=== PATIENT | male | born 1970 | race African-American/Black ===

== ENCOUNTER 2022-06-26 15:32 | Inpatient (IN) | payer MEDICAID ==
[~2022-06-26] VITALS: Ht 177.8 cm; Wt 65.3 kg
[2022-06-26 16:51] LABS: HEMATOCRIT 37.2 % (36.7-47.1); MEAN CORPUSCULAR HEMOGLOBIN 27.7 uug (23.8-33.4); MEAN CORPUSCULAR VOLUME 89.2 fL (73.0-96.2); PLATELET COUNT (AUTO) 300 K/uL (152-348)
[2022-06-26 17:00] LABS: CARBON DIOXIDE 22 mmol/L (21-32); CHLORIDE 106 mmol/L (98-107); GLUCOSE 77 mg/dL (74-106); POTASSIUM 4.5 mmol/L (3.5-5.1); UREA NITROGEN, BLOOD 41 mg/dL (7-18)
--- NOTE | 2022-06-26 19:25 | NUR ---
as per Dr Anderson, patient can have food
--- NOTE | 2022-06-26 19:30 | NUR ---
Change of shift report from Shari LIPSCOMB
--- NOTE | 2022-06-26 19:31 | NUR ---
Pavithra garcia in [facility] - 06/26/22 at 1932 by ISAI Change of shift report from Shari LIPSCOMB
--- NOTE | 2022-06-26 19:58 | NUR ---
Patient taken for lung scan
[2022-06-26] MEDS ORDERED: ONDANSETRON 4 MG/2 ML VIAL IV PRN (20:15)
[2022-06-26] MEDS ORDERED: REMEDY ESSENTIAL ZINC PASTE 113 GM TP PRN (20:15)
[2022-06-26] MEDS ORDERED: MAGNESIUM HYDROXIDE 30 ML LIQUID UDC PO PRN (20:15)
[2022-06-26] MEDS ORDERED: ACETAMINOPHEN 325 MG TABLET PO PRN (20:15)
--- NOTE | 2022-06-26 22:20 | NUR ---
Called 3rd floor to give report. Was told to wait for 15 mins
--- NOTE | 2022-06-26 22:36 | NUR ---
report given to Maddison LIPSCOMB
--- NOTE | 2022-06-26 23:15 | NUR ---
Pt. admitted to TELE room 305 , under care of Dr. Wheeler Belongs List completed Maddison RN aware of patient's arrival
--- NOTE | 2022-06-26 23:30 | NUR ---
Received pt via ish assisted by RUEL Bynum. Admitted 52 yr old male with diagnosis of CHF, Renal Failure, NSTEMI. AOx4. Able to ambulate. SOB noted with RR of 24 on rest. On O2 at 2LPM/NC. Pitting edema on right leg +3 and +2 on the left leg. IV site on RAC 20 g intact and patent. Instructed to use urinal for strict I&O. Verbalized understanding. All belonging documented. All needs attended. Safety precautions observed. Will continue to monitor.
[2022-06-26] MEDS: FUROSEMIDE 40 MG/4 ML VIAL IV SCH (23:49)
[2022-06-27] VITALS: BP 147/111
--- NOTE | 2022-06-27 03:00 | NUR ---
Critical Lab Troponin 165. made aware.
--- NOTE | 2022-06-27 03:42 | NUR ---
BP was 147/111 at 0000 then 154/107 at 0330. Informed Christine Hurt NP. No new order.
[2022-06-27 04:00] VITALS: BP 137/104
[2022-06-27] MEDS: PANTOPRAZOLE SODIUM 40 MG TABLET.DR PO SCH (06:01)
[2022-06-27 06:50] LABS: HEMATOCRIT 37.4 % (36.7-47.1); MEAN CORPUSCULAR HEMOGLOBIN 27.4 uug (23.8-33.4); PLATELET COUNT (AUTO) 285 K/uL (152-348)
[2022-06-27 07:16] LABS: CREATININE 2.5 mg/dL (0.6-1.3); MAGNESIUM 1.8 mg/dL (1.8-2.4); PHOSPHOROUS 4.4 mg/dL (2.5-4.9); POTASSIUM 4.2 mmol/L (3.5-5.1)
[2022-06-27] MEDS: FUROSEMIDE 40 MG/4 ML VIAL IV SCH ×3 (08:44→21:22)
[2022-06-27 09:43] LABS: *BILIRUBIN,URIN NEGATIVE (NEGATIVE); *BLOOD, URINE NEGATIVE (NEGATIVE); *CLARITY,URINE CLEAR (CLEAR); *COLOR,URINE YELLOW (YELLOW); *KETONES,URINE NEGATIVE (NEGATIVE); *UROBILINOGEN,URINE 0.2 E.U./dl (NORMAL); LEUKOCYTE ESTERASE ,URINE NEGATIVE (NEGATIVE); NITRITE, URINE NEGATIVE (NEGATIVE); PH,URINE 5.5 (5.0-8.0); UGLUCOSE NEGATIVE (NEGATIVE)
[2022-06-27 09:53] LABS: *CREATININE,URINE 71.1 mg/dL (30-125); *URINE TOTAL PROTEIN RANDOM 35.6 mg/dL (<150/24HR)
[2022-06-27 10:05] LABS: *AMPHETAMINE, URINE NEGATIVE (NEGATIVE); *CANNABINOID, URINE NEGATIVE (NEGATIVE); *COCCAINE, URINE POSITIVE (NEGATIVE); *PHENCYCLIDINE SCREEN,URINE NEGATIVE (NEGATIVE)
[2022-06-27] MEDS: ASPIRIN 81 MG TAB.CHEW PO SCH (10:21)
--- NOTE | 2022-06-27 11:22 | NUR ---
Social work consult was requested for a patient on [facility] for homeless resources and substance abuse resources. Patient is 52-year-old male admitted to the hospital for heart failure. Patient is alert and oriented X2. Patient could not state the date or place. Patient presents with depressed mood and congruent affect. Patient states he does not have a primary personnel technician. Patient states that he has been homeless for a couple of years. SW offered the patient resources for shelters and the patient refused. Resources were placed in the chart. Homeless waiver was signed, placed in the chart and a copy was given to the patient. Patient states he is currently unemployed. Patient states that he has a history of substance abuse. The toxicology screening reports positive for cocaine. [facility] provided the patient with resources to [place] [address] ([phone]), [facility] [id number] [place] [address] ([phone]), and [address] [address] ([phone]). Patient appeared appreciative of referrals and stated that he was interested in [address] [address] ([phone]). Patient appeared motivated for treatment. SAMM placed the resources in the patients chart. Patient denies suicidal or homicidal ideation. Patient states he wants to make his own arrangements for discharge. Patient states that he wants TAP card at discharge.
[2022-06-27 12:00] VITALS: BP 159/105
[2022-06-27 15:56] VITALS: BP 142/98
--- NOTE | 2022-06-27 18:27 | NUR ---
Patient tolerated care well throughout shift with no complaints of pain or distress. Patient hungry during shift. Snacks provided. Patient is alert and oriented. IV site patent and intact. Strict intake and output for shift. Bed left in lowest position with call light within reach. Comfort measures provided. Needs attended. Will endorse information to PM nurse.
--- NOTE | 2022-06-27 19:30 | NUR ---
Received pt awake, alert and orientedx4 .PT in no acute distress. Iv intact. Pt can make his needs known. Pt on sinus rhythm. Safety and comfort provided. Will continue to monitor.
[2022-06-27 19:48] VITALS: BP 156/100
[2022-06-28 00:17] VITALS: BP 136/95
[2022-06-28] MEDS: PANTOPRAZOLE SODIUM 40 MG TABLET.DR PO SCH (07:00)
[2022-06-28 08:14] LABS: MEAN CORPUSCULAR HEMOGLOBIN 27.6 uug (23.8-33.4); MEAN CORPUSCULAR VOLUME 87.7 fL (73.0-96.2); PLATELET COUNT (AUTO) 279 K/uL (152-348)
[2022-06-28 08:26] LABS: BILIRUBIN,TOTAL 0.7 mg/dL (0.2-1.0); CREATININE 2.3 mg/dL (0.6-1.3); MAGNESIUM 1.6 mg/dL (1.8-2.4); PHOSPHOROUS 3.3 mg/dL (2.5-4.9); TOTAL PROTEIN, SERUM 6.4 g/dL (6.4-8.2)
[2022-06-28] MEDS: ASPIRIN 81 MG TAB.CHEW PO SCH (08:32)
[2022-06-28] MEDS: FUROSEMIDE 40 MG/4 ML VIAL IV SCH ×3 (08:33→22:16)
[2022-06-28] MEDS ORDERED: MAGNESIUM OXIDE 400 MG TABLET PO ONE (09:15)
[2022-06-28 12:00] VITALS: BP 132/93
[2022-06-28 20:16] VITALS: BP 141/92
[2022-06-29 00:15] VITALS: BP 136/88
[2022-06-29 04:21] VITALS: BP 123/82
--- NOTE | 2022-06-29 05:12 | NUR ---
Received patient in bed awake, alert and oriented x 3. In no acute distress, denies chest pain, no SOB. Sinus tachy on tele with HR 98bpm. Slept intermittently throughout the night. Needs assessed and attended to. Call light within easy reach.
[2022-06-29] MEDS: PANTOPRAZOLE SODIUM 40 MG TABLET.DR PO SCH (06:15)
[2022-06-29] MEDS: FUROSEMIDE 40 MG/4 ML VIAL IV SCH ×2 (06:15→16:45)
[2022-06-29 06:17] LABS: MEAN CORPUSCULAR HEMOGLOBIN 27.5 uug (23.8-33.4); MEAN CORPUSCULAR VOLUME 87.3 fL (73.0-96.2); PLATELET COUNT (AUTO) 308 K/uL (152-348)
[2022-06-29 06:25] LABS: MAGNESIUM 1.6 mg/dL (1.8-2.4); PHOSPHOROUS 3.3 mg/dL (2.5-4.9); POTASSIUM 3.7 mmol/L (3.5-5.1)
--- NOTE | 2022-06-29 07:30 | NUR ---
Pt.sleeping,no s/s of distress or pain noted.
[2022-06-29] MEDS ORDERED: POTASSIUM CHLORIDE 20 MEQ POWDER PACKET PO ONE (08:30)
[2022-06-29] MEDS: ASPIRIN 81 MG TAB.CHEW PO SCH (08:42)
[2022-06-29] MEDS ORDERED: POTASSIUM CHLORIDE 20 MEQ TAB.PRT.SR PO ONE (08:45)
[2022-06-29] MEDS: MAGNESIUM SULFATE/D5W 100 ML IV SCH ×2 (08:49→09:30)
[2022-06-29] MEDS: LOSARTAN POTASSIUM 25 MG TABLET PO SCH (08:49)
[2022-06-29 15:08] LABS: A/G RATIO 0.8 (0.7-1.7); ALBUMIN 2.5 g/dL (2.9-4.4); ALPHA-1-GLOBULIN 0.3 g/dL (0.0-0.4); ALPHA-2-GLOBULIN 0.6 g/dL (0.4-1.0); BETA GLOBULIN 1.2 g/dL (0.7-1.3); GAMMA GLOBULIN 1.2 g/dL (0.4-1.8); GLOBULIN, TOTAL 3.2 g/dL (2.2-3.9); M-SPIKE Not Observed g/dL (Not Observed)
[2022-06-29 16:00] VITALS: BP 121/77
--- NOTE | 2022-06-29 19:39 | NUR ---
Received patient lying in bed. AAOX4. In no acute distress. Denies any pain or SOB. NSR on tele with HR of 99/min. IV site on right AC intact and patent.Needs assessed and attended to. Safety measure initiated and call light within reached.
[2022-06-29 20:30] VITALS: BP 117/69
[2022-06-30 00:34] VITALS: BP 118/69
[2022-06-30 04:24] VITALS: BP 122/78
--- NOTE | 2022-06-30 05:24 | NUR ---
Patient slept well during the night. No complain of pain or SOB. NSR on tele with Hr of 92/min. Needs attended to and met. Safety measure maintained and call light within reached.
[2022-06-30] MEDS: PANTOPRAZOLE SODIUM 40 MG TABLET.DR PO SCH (06:09)
[2022-06-30 07:23] LABS: HEMATOCRIT 41.6 % (36.7-47.1); MEAN CORPUSCULAR HEMOGLOBIN 27.6 uug (23.8-33.4); MEAN CORPUSCULAR VOLUME 86.7 fL (73.0-96.2); PLATELET COUNT (AUTO) 331 K/uL (152-348)
--- NOTE | 2022-06-30 07:30 | NUR ---
Awake, alert, oriented x 4, requesting for food. Calm and cooperative. Denies chest pain
[2022-06-30 08:02] LABS: POTASSIUM 4.2 mmol/L (3.5-5.1)
[2022-06-30 08:03] LABS: CREATININE 1.9 mg/dL (0.6-1.3)
[2022-06-30] MEDS: ASPIRIN 81 MG TAB.CHEW PO SCH (08:58)
[2022-06-30] MEDS: FUROSEMIDE 40 MG/4 ML VIAL IV SCH (08:58)
[2022-06-30] MEDS: LOSARTAN POTASSIUM 25 MG TABLET PO SCH (09:04)
--- NOTE | 2022-06-30 10:00 | NUR ---
Asking for additional food, provided.
[2022-06-30] MEDS: SPIRONOLACTONE 25 MG TABLET PO SCH (11:51)
[2022-06-30 16:48] VITALS: BP 116/86
[2022-06-30] MEDS: FUROSEMIDE 40 MG TABLET PO SCH (17:38)
--- NOTE | 2022-06-30 18:15 | NUR ---
On and off O2. prefers to be on O2 at 2L/NC with O2 sat of 100%. Not in distress. Denies chest pain.
--- NOTE | 2022-06-30 19:30 | NUR ---
rounds made patient in bed aaox4/maex4 . no respiratory distress noted breathing even and unlabored . on room air .patient denies any pain . requesting food given crackers and ice cold water .
--- NOTE | 2022-06-30 20:30 | NUR ---
patient ambulated to the bathroom steady of gait patient voided .
[2022-06-30 20:43] VITALS: BP 123/80
[2022-07-01 00:47] VITALS: BP 125/85
--- NOTE | 2022-07-01 01:00 | NUR ---
patient sleeping in bed .no s/s of distress ,breathing even and unlabored .
[2022-07-01 04:47] VITALS: BP 128/87
[2022-07-01] MEDS: PANTOPRAZOLE SODIUM 40 MG TABLET.DR PO SCH (06:01)
--- NOTE | 2022-07-01 06:15 | NUR ---
patient called and requesting for food ,given turkey sandwich.
[2022-07-01 06:16] LABS: HEMATOCRIT 41.3 % (36.7-47.1); MEAN CORPUSCULAR HEMOGLOBIN 27.5 uug (23.8-33.4); MEAN CORPUSCULAR VOLUME 86.7 fL (73.0-96.2); PLATELET COUNT (AUTO) 298 K/uL (152-348)
[2022-07-01 06:29] LABS: CREATININE 1.9 mg/dL (0.6-1.3); MAGNESIUM 1.9 mg/dL (1.8-2.4); POTASSIUM 4.3 mmol/L (3.5-5.1)
--- NOTE | 2022-07-01 08:00 | NUR ---
AWAKE ALERT AND ORIENTED X3 NO SS OF PAIN OR DISTRESS. CONTINUE TELE STATUS
[2022-07-01] MEDS: SPIRONOLACTONE 25 MG TABLET PO SCH (09:22)
[2022-07-01] MEDS: FUROSEMIDE 40 MG TABLET PO SCH (09:22)
[2022-07-01] MEDS: ASPIRIN 81 MG TAB.CHEW PO SCH (09:22)
[2022-07-01] MEDS: LOSARTAN POTASSIUM 25 MG TABLET PO SCH (09:23)
--- NOTE | 2022-07-01 10:00 | NUR ---
SEEN BY AUTOMATIC MACHINE ATTENDANT AND SAID CLEAR FOR DISCHARGE ON CARDIAC STANDPOINT
[2022-07-01] MEDS ORDERED: ASPI81TA31 PO (11:27)
[2022-07-01] MEDS ORDERED: FURO40TA5 PO (11:27)
[2022-07-01] MEDS ORDERED: LOSA25TA27 PO (11:27)
[2022-07-01] MEDS ORDERED: SPIR25TA PO (11:27)
--- NOTE | 2022-07-01 11:30 | NUR ---
SEEN BY HOSPITALIST WITH DISCHARGE ORDER. SEE NOTES
[2022-07-01 12:04] VITALS: BP 117/84
--- NOTE | 2022-07-01 14:15 | NUR ---
DISCHARGE HOME WITH MEDICATION, FOLLOW-UP WITH PCP AND HOMELESS INSTRUCTION.
== END 2022-07-01 13:15 | disposition home or self-care (01) | DRG 194 ==
LOC: ER 15:42 → TELE3 22:45
PROVIDERS: ADMIT Nurse Practitioner Family; ATTEND Nurse Practitioner Family
DX: I13.0 Hypertensive heart and chronic kidney disease with heart failure and stage 1 through stage 4 chronic kidney disease, or unspecified chronic kidney disease (principal); N17.0 Acute kidney failure with tubular necrosis; J96.91 Respiratory failure, unspecified with hypoxia; I50.23 Acute on chronic systolic (congestive) heart failure; I21.A1 Myocardial infarction type 2; Z59.00 Homelessness unspecified; D64.9 Anemia, unspecified; N18.9 Chronic kidney disease, unspecified; F14.10 Cocaine abuse, uncomplicated; F17.210 Nicotine dependence, cigarettes, uncomplicated; Z71.6 Tobacco abuse counseling; D63.8 Anemia in other chronic diseases classified elsewhere; I42.8 Other cardiomyopathies; Z20.822 Contact with and (suspected) exposure to COVID-19
CPT/HCPCS: 36415; 71045; 76770; 78580; 83735; 83970; 84100; 84155; 84156; 84165; 84300; 84484; 85025; 93005; 93307; 97161; A4663; A9540; G0378; J1940; J3475; U0003

== ENCOUNTER 2022-09-17 00:33 | Emergency (ER) | payer MEDICAID ==
[~2022-09-17] VITALS: Ht 172.7 cm; Wt 65.8 kg
[~2022-09-17 00:33] MED LIST: ASPI81TA31 PO; FURO40TA5 PO; LOSA25TA27 PO; SPIR25TA PO
--- NOTE | 2022-09-17 01:13 | NUR ---
Dr. Bledsoe at bedside for MSE
[2022-09-17] MEDS ORDERED: FUROSEMIDE 40 MG TABLET ONE (01:23)
[2022-09-17] MEDS ORDERED: CLONIDINE HCL 0.2 MG TABLET ONE (01:23)
[2022-09-17] MEDS ORDERED: hydrALAZINE HCL 25 MG TABLET ONE (01:23)
[2022-09-17] MEDS ORDERED: CLONIDINE HCL 0.2 MG TABLET PO ONE (01:30)
[2022-09-17] MEDS ORDERED: hydrALAZINE HCL 25 MG TABLET PO ONE (01:30)
[2022-09-17] MEDS ORDERED: FUROSEMIDE 20 MG TABLET PO ONE (01:30)
[2022-09-17 02:11] LABS: HEMATOCRIT 36.6 % (36.7-47.1); MEAN CORPUSCULAR HEMOGLOBIN 25.7 uug (23.8-33.4); MEAN CORPUSCULAR VOLUME 83.6 fL (73.0-96.2); PLATELET COUNT (AUTO) 291 K/uL (152-348)
[2022-09-17 02:17] LABS: POTASSIUM 4.5 mmol/L (3.5-5.1)
[2022-09-17] MEDS ORDERED: MAGNESIUM SULFATE/D5W 300 ML ONE (02:32)
[2022-09-17] MEDS ORDERED: SPIR25TA PO (02:49)
[2022-09-17] MEDS ORDERED: MAGN400C PO (02:49)
[2022-09-17] MEDS ORDERED: LOSA25TA27 PO (02:49)
[2022-09-17] MEDS ORDERED: FURO-151 PO (02:49)
[2022-09-17] MEDS: MAGNESIUM SULFATE/D5W 100 ML IV SCH ×3 (02:52→04:00)
[2022-09-17 04:20] VITALS: BP 147/59
--- NOTE | 2022-09-17 04:20 | NUR ---
Patient discharged to home in stable condition. Written and verbal after care instructions given. Patient verbalizes understanding of instructions. Stressed follow up or return to ER for worsening s/s.
== END 2022-09-17 04:21 | disposition home or self-care (01) ==
LOC: ER 00:38
DX: I13.0 Hypertensive heart and chronic kidney disease with heart failure and stage 1 through stage 4 chronic kidney disease, or unspecified chronic kidney disease (principal); N18.9 Chronic kidney disease, unspecified; I50.9 Heart failure, unspecified; R94.31 Abnormal electrocardiogram [ECG] [EKG]; I25.2 Old myocardial infarction; E83.42 Hypomagnesemia; I42.9 Cardiomyopathy, unspecified; Z59.00 Homelessness unspecified
CPT/HCPCS: 99285; 96365; 71045; 80048; 83880; 83735; 85025; 36415; 93005; J3475; A4663

== ENCOUNTER 2023-03-08 02:20 | Inpatient (IN) | payer MEDICAID ==
[~2023-03-08] VITALS: Ht 177.8 cm; Wt 76.0 kg
[~2023-03-08 02:20] MED LIST changes: +FURO-151 PO; +MAGN400C PO
--- NOTE | 2023-03-08 02:53 | NUR ---
Patient walked to ER c/o SOB today, does not recall what time it started. Denies CP. Patient satting @100% on RA, no coughing, no fever noted.
[2023-03-08] MEDS ORDERED: FUROSEMIDE 40 MG/4 ML VIAL IV ONE ×3 (03:00→07:30)
[2023-03-08] MEDS ORDERED: CLONIDINE HCL 0.1 MG TABLET PO ONE (03:00)
[2023-03-08] MEDS ORDERED: FUROSEMIDE 40 MG/4 ML VIAL ONE (03:17)
[2023-03-08] MEDS ORDERED: CLONIDINE HCL 0.1 MG TABLET ONE (03:17)
[2023-03-08 03:19] LABS: HEMATOCRIT 41.6 % (36.7-47.1); MEAN CORPUSCULAR HEMOGLOBIN 26.8 uug (23.8-33.4); MEAN CORPUSCULAR VOLUME 85.3 fL (73.0-96.2); PLATELET COUNT (AUTO) 272 K/uL (152-348)
[2023-03-08] MEDS ORDERED: FURO-151 PO (03:21)
[2023-03-08] MEDS ORDERED: SPIR25TA PO (03:21)
[2023-03-08] MEDS ORDERED: MAGN400T26 PO (03:21)
[2023-03-08] MEDS ORDERED: LOSA25TA27 PO (03:21)
[2023-03-08 03:38] LABS: CARBON DIOXIDE 21 mmol/L (21-32); CHLORIDE 106 mmol/L (98-107); CREATININE 1.8 mg/dL (0.6-1.3); GLUCOSE 106 mg/dL (74-106); POTASSIUM 4.4 mmol/L (3.5-5.1); UREA NITROGEN, BLOOD 27 mg/dL (7-18)
[2023-03-08] MEDS ORDERED: ASPIRIN 81 MG TAB.CHEW ONE (03:58)
[2023-03-08] MEDS ORDERED: NITROGLYCERIN OINT 1 GM PACKET TP ONE ×2 (03:58→04:00)
[2023-03-08] MEDS ORDERED: hydrALAZINE HCL 20 MG/1 ML VIAL ONE ×2 (03:59→04:51)
[2023-03-08] MEDS ORDERED: hydrALAZINE HCL 20 MG/1 ML VIAL IV ONE ×2 (04:00→05:00)
[2023-03-08] MEDS ORDERED: ASPIRIN 81 MG TAB.CHEW PO ONE (04:00)
--- NOTE | 2023-03-08 04:22 | NUR ---
Epic panel call placed, spoke to Micha, stated he will get a hold of STEP DOWN SPECIALIST Blu for admitting.
--- NOTE | 2023-03-08 04:27 | NUR ---
Dr Bledsoe on panel call with VASCULAR RADIOLOGIST Blu. Patient accepted for admission to Tele unit, Dx of CHF.
[2023-03-08] MEDS ORDERED: REMEDY ESSENTIAL ZINC PASTE 113 GM TP PRN (04:30)
[2023-03-08] MEDS ORDERED: MAGNESIUM HYDROXIDE 30 ML LIQUID UDC PO PRN (04:30)
[2023-03-08] MEDS ORDERED: ACETAMINOPHEN 325 MG TABLET PO PRN (04:30)
[2023-03-08] MEDS ORDERED: ONDANSETRON 4 MG/2 ML VIAL IV PRN (04:30)
--- NOTE | 2023-03-08 04:32 | NUR ---
1400ml urine output at this time.
--- NOTE | 2023-03-08 05:20 | NUR ---
Pt. admitted to Telemetry unit, room 318 , under care of [employer]ICOND[employer] PACKAGES SEALER Blu, Dx CHF exacerbation. Report given to RUEL Washburn. Belongs List completed.
[2023-03-08 05:56] VITALS: BP 146/90
--- NOTE | 2023-03-08 06:25 | NUR ---
Admitted 52 yr old male with diagnosis of CHF exacerbation under [facility] SE[facility]. AOx4. Ambulatory. Noted Shortness of breath. On O2 1LPM via NC. Denies any pain or discomfort. Skin is intact. No edema noted. IV site on R AC 20g intact and patent. Routine admission done. Duffle bag with security. Pt is aware that he will get it once he's discharged. All needs attended. Safety precautions observed.
--- NOTE | 2023-03-08 07:30 | NUR ---
RECEIVED PATIENT IN BED WITH EYES CLOSED, RESTING COMFORTABLY ON 1L NC SATURATING 97 %. SR ON MONITOR. PLAN DISCHARGE TODAY
--- NOTE | 2023-03-08 08:30 | NUR ---
SEEN BY DR PENG FOR CARDIAC CONSULT SEE NOTES
[2023-03-08] MEDS: LOSARTAN POTASSIUM 50 MG TABLET PO SCH (08:41)
[2023-03-08] MEDS: MAGNESIUM OXIDE 400 MG TABLET PO SCH ×2 (08:41→16:09)
[2023-03-08] MEDS: ASPIRIN 81 MG TAB.CHEW PO SCH (08:41)
[2023-03-08] MEDS: ENOXAPARIN SODIUM 40 MG/0.4 ML DISP.SYRIN SQ SCH (08:42)
[2023-03-08] MEDS ORDERED: LOSARTAN POTASSIUM 25 MG TABLET PO SCH (09:00)
[2023-03-08 10:07] LABS: *AMPHETAMINE, URINE NEGATIVE (NEGATIVE); *CANNABINOID, URINE NEGATIVE (NEGATIVE); *COCCAINE, URINE POSITIVE (NEGATIVE); *PHENCYCLIDINE SCREEN,URINE NEGATIVE (NEGATIVE)
[2023-03-08 11:43] VITALS: BP 132/87
--- NOTE | 2023-03-08 12:00 | NUR ---
NO ACUTE CHANGE FROM MORNING ASSESSMENT, NOTED PATIENT DUERISING WELL WITH LASIX. CONTINUE CLOSE MONITORING. REMAINS COMFORTABLE WITH O2 1L NC SATURATING 96%. SR ON MONITOR
--- NOTE | 2023-03-08 13:55 | NUR ---
RESTING COMFORTABLY IN BED NO SOB OR C/O PAIN SR ON MONITOR
--- NOTE | 2023-03-08 15:28 | NUR ---
SITTING UP ON A BEDSIDE CHAIR BY THE WINDOW NO SS OF PSIN OR DISTRESS SR ON MONITOR
[2023-03-08] MEDS: FUROSEMIDE 40 MG/4 ML VIAL IV SCH (16:09)
[2023-03-08 16:17] VITALS: BP 140/81
--- NOTE | 2023-03-08 17:32 | NUR ---
2D ECHO COMPLETED RESULTS IN CHART
--- NOTE | 2023-03-08 17:33 | NUR ---
REMAINS SR ON MONITOR, TOLERATING 1L NC SATURATING 98%
--- NOTE | 2023-03-08 19:30 | NUR ---
Received patient lying in bed, asleep but easily arouse to verbal stimuli. AOx4. In no apparent distress. Denies any pain or SOB at this time. O2 at 1LPM via NC in place, O2 sat at 98%. Sinus tachy on tele with HR of 103/min. IV site on right AC intact and patent. Needs assessed and attended to. Safety measure initiated and call light within reached.
[2023-03-08 20:20] VITALS: BP 134/90
[2023-03-09 00:21] VITALS: BP 109/86
--- NOTE | 2023-03-09 03:38 | NUR ---
Patient accidentally pulled out IV. Placed new peripheral IV on right FA #[id number].
[2023-03-09] MEDS: FUROSEMIDE 40 MG/4 ML VIAL IV SCH (04:07)
[2023-03-09 04:27] VITALS: BP 142/92
--- NOTE | 2023-03-09 05:29 | NUR ---
Slept well through out the night. Remains on O2 at 1LPM via NC. O2 sat at 99%, NSR on tele with HR of 63/min. Needs attended to and met. Safety measure maintained and call light within reached.
[2023-03-09 06:58] LABS: HEMATOCRIT 43.2 % (36.7-47.1); MEAN CORPUSCULAR HEMOGLOBIN 26.6 uug (23.8-33.4); PLATELET COUNT (AUTO) 310 K/uL (152-348)
[2023-03-09 07:31] LABS: CREATININE 1.8 mg/dL (0.6-1.3); MAGNESIUM 1.8 mg/dL (1.8-2.4); PHOSPHOROUS 3.7 mg/dL (2.5-4.9); POTASSIUM 4.2 mmol/L (3.5-5.1)
[2023-03-09] MEDS: MAGNESIUM OXIDE 400 MG TABLET PO SCH ×2 (09:10→17:59)
[2023-03-09] MEDS: ASPIRIN 81 MG TAB.CHEW PO SCH (09:10)
[2023-03-09] MEDS: LOSARTAN POTASSIUM 50 MG TABLET PO SCH (09:10)
[2023-03-09] MEDS: ENOXAPARIN SODIUM 40 MG/0.4 ML DISP.SYRIN SQ SCH (09:11)
--- NOTE | 2023-03-09 09:12 | NUR ---
fluid restriction 1200 ml per md.
[2023-03-09 09:24] VITALS: BP 136/93
--- NOTE | 2023-03-09 10:15 | NUR ---
critical lab value reported. trop- 399. made aware. no new order at this time
[2023-03-09 12:00] VITALS: BP 129/95
[2023-03-09] MEDS ORDERED: CEFTRIAXONE 2 G VIAL IM SCH (12:30)
[2023-03-09] MEDS ORDERED: CEFTRIAXONE 2 G in IV DEXTROSE 5% 100 ML IV SCH (13:00)
[2023-03-09] MEDS ORDERED: VANCOMYCIN IV 1,250 MG in IV DEXTROSE 5% 250 ML IV ONE (14:00)
[2023-03-09 16:00] VITALS: BP 125/94
--- NOTE | 2023-03-09 18:27 | NUR ---
pt alert and orient. able to make needs known. ambulatory. on room air. denies any pain and shortness of breath. pt states he is much better today. trop trending down, md aware. pt on fluid restriction 1.2L. strict I&O maintained. Infectious disease dc abx. all need attended. safety measure maintained.
--- NOTE | 2023-03-09 19:45 | NUR ---
rounds made patient in bed AAOX4,maex4 . no respiratory distress noted breathing even and unlabored.advised patient to call for assistance and to used the call light .
[2023-03-09 20:00] VITALS: BP 122/58
--- NOTE | 2023-03-09 20:45 | NUR ---
patient called and requesting for food . given vanilla pudding and sandwich . patient able to feed self .
[2023-03-10] VITALS: BP 132/90
--- NOTE | 2023-03-10 02:30 | NUR ---
patient called requesting for something to eat given turkey sandwich, vanilla pudding and apple juice verbalized his starving . patient able to feed self .
[2023-03-10 04:00] VITALS: BP 132/92
[2023-03-10 06:43] LABS: HEMATOCRIT 44.3 % (36.7-47.1); MEAN CORPUSCULAR HEMOGLOBIN 26.6 uug (23.8-33.4); MEAN CORPUSCULAR VOLUME 84.9 fL (73.0-96.2); PLATELET COUNT (AUTO) 313 K/uL (152-348)
[2023-03-10 07:13] LABS: CREATININE 1.5 mg/dL (0.6-1.3); PHOSPHOROUS 3.8 mg/dL (2.5-4.9); POTASSIUM 4.8 mmol/L (3.5-5.1)
[2023-03-10] MEDS: MAGNESIUM OXIDE 400 MG TABLET PO SCH ×2 (08:49→16:06)
[2023-03-10] MEDS: ASPIRIN 81 MG TAB.CHEW PO SCH (08:49)
[2023-03-10] MEDS: ENOXAPARIN SODIUM 40 MG/0.4 ML DISP.SYRIN SQ SCH (08:49)
[2023-03-10] MEDS: LOSARTAN POTASSIUM 50 MG TABLET PO SCH (08:52)
[2023-03-10] MEDS ORDERED: FUROSEMIDE 40 MG TABLET PO SCH (09:00)
[2023-03-10 11:37] VITALS: BP 140/96
--- NOTE | 2023-03-10 15:00 | NUR ---
Notified Dr weems re: pt Vtach episode. Pt asymptomatic VS b/p 121/81 -HR 98- RESP 17- Temp 98.0 O2 sat 100% on r/a. New order received for metropolol 25mg to be given now and then daily. Will continue to monitor patient.
[2023-03-10] MEDS: METOPROLOL SUCCINATE XL 25 MG TAB.SR.24H PO SCH (15:16)
[2023-03-10 16:00] VITALS: BP 126/78
[2023-03-10] MEDS: FUROSEMIDE 40 MG TABLET PO SCH (16:06)
[2023-03-10 20:05] VITALS: BP 129/91
[2023-03-11 00:02] VITALS: BP 124/93
[2023-03-11 04:03] VITALS: BP 127/92
--- NOTE | 2023-03-11 06:38 | NUR ---
Slept intermittently, in no acute distress. Sinus rhythm on tele with HR 83. IV access to RFA intact and patent. Needs assessed and attended to.
[2023-03-11] MEDS: ENOXAPARIN SODIUM 40 MG/0.4 ML DISP.SYRIN SQ SCH (09:35)
[2023-03-11] MEDS: ASPIRIN 81 MG TAB.CHEW PO SCH (09:43)
[2023-03-11] MEDS: MAGNESIUM OXIDE 400 MG TABLET PO SCH (09:43)
[2023-03-11] MEDS: FUROSEMIDE 40 MG TABLET PO SCH (09:44)
[2023-03-11] MEDS: LOSARTAN POTASSIUM 50 MG TABLET PO SCH (09:44)
[2023-03-11] MEDS: METOPROLOL SUCCINATE XL 25 MG TAB.SR.24H PO SCH (09:45)
[2023-03-11] MEDS ORDERED: FURO40TA5 PO (10:28)
[2023-03-11] MEDS ORDERED: MAGN400T30 PO (10:28)
[2023-03-11] MEDS ORDERED: ASPI81TA31 PO (10:28)
[2023-03-11] MEDS ORDERED: LOSA50TA3 PO (10:28)
[2023-03-11 11:32] VITALS: BP 128/90
--- NOTE | 2023-03-11 13:34 | NUR ---
Social work consult was requested for a patient on [facility] for homeless resources and substance abuse resources. Patient is 52-year-old male admitted to the hospital for heart failure. Patient is alert and oriented X4. Patient presents with anxious mood and congruent affect. Patient states he does not have a primary medicare contact specialist. Patient states that he has been homeless for a couple of years and [facility]M provided the patient resources for [facility] [address] [place] [address] ([phone]) and [facility] [address] [facility] [address] ([phone]). SAMM gave resources for [facility] [address] [facility] [address]. Resources were placed in the chart. Homeless waiver was signed and a copy was placed in the chart. Patient states that he has a history of substance abuse. The toxicology screening reports positive for cocaine. SAMM provided the patient with resources to [facility] [address] [facility] [address] ([phone]), [facility] [address] [facility] [address] ([phone]), and [address] [address] ([phone]). Patient appeared appreciative of referrals and he appeared motivated for treatment. SAMM placed the resources in the patients chart. Patient denies suicidal or homicidal ideation. Patient states he wants to make his own arrangements for discharge. Patient states that he wants TAP card at discharge and [facility]M provided the patient with a TAP card.
--- NOTE | 2023-03-11 13:35 | NUR ---
PATIENT DISCHARGED STATED THAT HE IS GOING TO [place] [facility] WAS GIVEN TO HIM BY THE DYE WINCH OPERATOR DISCHARGE INSTRUCTIONS AND HE STATED WILL AGING DEPARTMENT SUPERVISOR HIS MEDICATIONS AT THE PHARMACY INSTRUCTED BY MALI SOMMER AND HE PICKED UP THE REMAINDER OF HIS BELONGINGS FROM THE SECURITY IN SATISFACTORY CONDITION
== END 2023-03-11 13:35 | disposition home or self-care (01) | DRG 193 ==
LOC: ER 02:24 → TELE3 04:25
PROVIDERS: ADMIT Nurse Practitioner Acute Care; ATTEND Nurse Practitioner Acute Care
DX: I33.0 Acute and subacute infective endocarditis (principal); I50.23 Acute on chronic systolic (congestive) heart failure; I21.A1 Myocardial infarction type 2; I42.7 Cardiomyopathy due to drug and external agent; I13.0 Hypertensive heart and chronic kidney disease with heart failure and stage 1 through stage 4 chronic kidney disease, or unspecified chronic kidney disease; F17.210 Nicotine dependence, cigarettes, uncomplicated; N18.9 Chronic kidney disease, unspecified; T40.5X1A Poisoning by cocaine, accidental (unintentional), initial encounter; Y92.89 Other specified places as the place of occurrence of the external cause; I47.1 Supraventricular tachycardia; J98.11 Atelectasis; Z59.02 Unsheltered homelessness; Z79.899 Other long term (current) drug therapy; F14.10 Cocaine abuse, uncomplicated; Z79.82 Long term (current) use of aspirin
CPT/HCPCS: 36415; 71045; 83735; 84100; 84484; 85025; 87040; 93005; 93307; A4663; G0378; J0360; J0696; J1650; J1940; J7050